=== PATIENT | female | born 1970 ===

== ENCOUNTER 2017-04-23 14:18 | Emergency (ER) | payer OTHER ==
[2017-04-23 14:48] VITALS: BP 107/69
[2017-04-23] MEDS ORDERED: Tetracaine 0.5% OPTH.SOL 4 ML* 1 DROP BTL ONE (14:49)
[2017-04-23] MEDS ORDERED: BSS OPTH.SOL* BTL ONE (14:49)
[2017-04-23] MEDS ORDERED: Fluorescein Sodium TOPICAL* 1 MG TEST ONE (14:49)
[2017-04-23] MEDS ORDERED: Fluorescein Sodium TOPICAL* 1 MG TEST OPHTHALMIC ONE (14:55)
[2017-04-23] MEDS ORDERED: Tetracaine 0.5% OPTH.SOL 4 ML* 1 DROP BTL RIGHT EYE ONE (14:55)
--- NOTE | 2017-04-23 15:11 | UC ---
Eye Complaint HPI - HPI Summary HPI Summary: Cleaning a basement and felt like something got into her right eye. - History of Current Complaint Chief Complaint: UCEye Stated Complaint: EYE IRRITATION Hx Obtained From: Patient Hx Last Menstrual Period: 04/17/17 ?: No Onset/Duration: Sudden Onset - Feels like FB right eye, Worse Since - this morning with more swelling and redness with persistent feeling of FB in the right eye. Timing: Constant Severity Initially: Mild Location of Injury: Eye Lid (upper) Character: Foreign Body Sensation Aggravating Factor(s): Blinking Alleviating Factor(s): Nothing Associated Signs And Symptoms: Positive: Swelling. Negative: Drainage (Clear), Drainage (Purulent), Vision Impairment Right, Vision Impairment Left - Risk Factors Penetrating Injury Risk Factor: Negative Acute Glaucoma Risk Factors: Negative - Allergies/Home Medications Allergies/Adverse Reactions: Allergies Allergy/AdvReac Type Severity Reaction Status Date / Time No Known Allergies Allergy Verified 04/23/17 14:47 PMH/Surg Hx/FS Hx/Imm Hx Previously Healthy: Yes - Surgical History Surgical History: Yes Surgery Procedure, Year, and Place: T&A age 16 - Family History Known Family History: Positive: Hypertension Negative: Cardiac Disease, Diabetes - Social History Occupation: Employed Full-time Lives: With Family Alcohol Use: Occasionally Substance Use Type: None Smoking Status (MU): Never Smoked Tobacco Have You Smoked in the Last Year: No Review of Systems Eyes: Eye Redness All Other Systems Reviewed And Are Negative: Yes Physical Exam Triage Information Reviewed: Yes Appearance: Well-Appearing, No Pain Distress, Well-Nourished Vital Signs: Initial Vital Signs Temp 98.7 F 04/23/17 14:44 Pulse 62 04/23/17 14:44 Resp 16 04/23/17 14:44 BP 107/69 04/23/17 14:44 Pulse Ox 100 04/23/17 14:44 Vital Signs Reviewed: Yes Eyes: Positive: Conjunctiva Inflamed - OD, Lid flipped, no FB, Negative fluorescein stain. ENT: Positive: Pharynx normal, Nasal congestion - with allergic changes., TMs normal Neck exam: Normal Respiratory Exam: Normal Cardiovascular Exam: Normal Musculoskeletal Exam: Normal Neurological Exam: Normal Psychological Exam: Normal Skin Exam: Normal Eye Complaint Course/Dx - Differential Dx/Diagnosis Differential Diagnosis/HQI/PQRI: Conjunctivitis, Corneal Abrasion, Foreign Body Provider Diagnoses: conjunctivitis, mechanical vs allergic Discharge - Discharge Plan Condition: Stable Disposition: HOME Prescriptions: Azelastine 0.05% (OPHTH)(NF) [Optivar 0.05% (NF)] 1 drop RIGHT EYE BID PRN #1 btl PRN Reason: Itching Patient Education Materials: Conjunctivitis (ED) Additional Instructions: Do not use your contacts until the redness has resolved [employer] SINUS RINSE: CHECK OUT AT [employer] Saline nasal wash helps with mucous, allergies and congestion. It can be used up to twice a day or only as needed. Use lukewarm tap water. It does not have to be sterilized or distilled water. Do 1/3 on each side and snort out of both nostrils. Repeat the process with 1/6 of the bottle on each side with snorting in between to finish the solution in the bottle
== END 2017-04-23 15:23 | disposition home or self-care (01) ==
LOC: UCCORT 14:18
DX: H10.9 Unspecified conjunctivitis (principal)
CPT/HCPCS: 99212; A9270-GY; G0463